=== PATIENT | female | born 1925 | race Caucasian/White ===

== ENCOUNTER 2016-08-28 06:46 | Inpatient (IN) | payer MEDICARE ==
[2016-08-24 11:48] LABS: BASOPHILS 0.3 %; BASOPHILS ABSOLUTE 0.03 10/3/uL (0.0-0.16); EOSINOPHILS 0.6 %; EOSINOPHILS ABSOLUTE 0.05 10/3/uL (0.0-0.53); HEMATOCRIT 45.1 % (36.0-48.0); HEMOGLOBIN 15.6 g/dL (12.0-16.0); IMMATURE GRANULOCYTES 0.2 %; IMMATURE GRANULOCYTES ABSOLUTE 0.02 10/3/uL (0.0-0.11); LYMPHOCYTES 22.3 %; LYMPHOCYTES ABSOLUTE 1.99 10/3/uL (0.67-4.30); MEAN CORPUS HGB CONC 34.6 g/dL (32.0-36.0); MEAN CORPUSCULAR HEMOGLOB 31.3 pg (26.0-34.0); MEAN CORPUSCULAR VOLUME 90.6 fL (80-100); MEAN PLATELET VOLUME 11.2 fL (9.2-13.0); MONOCYTES 9.4 %; MONOCYTES ABSOLUTE 0.84 10/3/uL (0.21-1.20); NEUTROPHILS 67.2 %; PLATELET COUNT 196 10/3/uL (150-400); RBC DISTRIBUTION WIDTH 14.3 % (12.0-16.0); RED CELL COUNT 4.98 10/6/uL (4.0-5.6); WHITE BLOOD CELLS 8.9 10/3/uL (4.5-10.5)
[2016-08-24 11:50] LABS: MANUAL DIFF NO %
[2016-08-24 11:54] LABS: INTERNATIONAL NORMAL RATI 1.6 UNITS (-)
[2016-08-24 11:55] LABS: PROTIME (NOT ORD) 18.5 SEC (12.0-14.5)
[2016-08-24 12:04] LABS: A/G RATIO 1.2 (0.7-1.9); ALBUMIN 4.2 G/DL (3.5-5.0); ALKALINE PHOSPHATASE 87 U/L (45-117); ASCORBIC ACID (UR NOT ORDER) 40 (NEG); BILIRUBIN, URINE NEGATIVE (NEG); BUN (BLOOD UREA NITROGEN) 16 MG/DL (6-23); CALCIUM, SERUM 9.7 MG/DL (8.5-10.4); CHLORIDE, SERUM 106 MMOL/L (96-112); CO2 (CARBON DIOXIDE) 30 MMOL/L (24-34); CREATININE 0.95 MG/DL (0.55-1.02); GFR AFRICAN AMERICAN 62 ML/MIN (>=60); GFR NON AFRICAN AMERICAN 53 ML/MIN (>=60); GLOBULIN 3.5 G/DL (2.5-4.1); GLUCOSE, SERUM 105 MG/DL (60-99); KETONE, URINE NEGATIVE (NEG); LEUKOCYTE ESTERASE(NOT OR MOD (NEG); POTASSIUM, SERUM 4.6 MMOL/L (3.5-5.3); SGOT(AST) 32 U/L (5-40); SGPT(ALT) 22 U/L (5-65); SODIUM, SERUM 143 MMOL/L (135-148); TOTAL BILIRUBIN 0.5 MG/DL (0-1.2); TOTAL PROTEIN 7.7 G/DL (6.0-8.5); WBC (NOT ORDERED) (RFLEX) 12 (0-5)
[2016-08-24 14:52] LABS: GLYCOHEMOGLOBIN (HbA1c) 5.7 % (4.7-6.1)
--- NOTE | ~2016-08-28 | OP ---
Record Of Operation [facility] [address] [place]. [address] NAME: PATRICK LUIS : [birth year] STATUS : ADM IN PAT#: [id number] AGE: 89 ADM/REG DATE : 08/28/16 MR#: [id number] REPORT SERV DATE: 08/28/16 DICTATED BY: ALFIE CHATTERJEE DATE: 08/28/16 REPORT STATUS : Draft TRANSCRIBED BY: JOSIANE DATE: 08/28/16 DATE OF PROCEDURE: 08/28/2016 PREOPERATIVE DIAGNOSES: 1. Aortic valve stenosis with insufficiency. 2. Paroxysmal atrial fibrillation. 3. Acute on chronic diastolic congestive heart failure. 4. Hypertension. 5. Hypothyroidism. 6. History of Meniere disease. PROCEDURES PERFORMED: 1. Right transfemoral and transarterial aortic valve replacement using a 26 mm Francisco III pericardial valve, Hills. 2. Placement of left transfemoral venous pacemaker wire, temporary. 3. Ascending aortography. 4. ProGlide closure of the right femoral arteriotomy x2, left femoral arteriotomy x1. 5. Aortogram with right iliofemoral runoff. SURGEONS: 1. Alfie Chatterjee M.D. 2. Ceferino Palomo M.D. 3. Michael Napoles M.D. 4. Dr. Cuevas. LEARNING OPERATIONS SPECIALIST: Vu Cervantes M.D., Ph.D, F.A.C.C. REFERRING LEARNING OPERATIONS SPECIALIST: Corey Bell M.D. INDICATIONS: This is an 89-year-old female who has a history of aortic valve stenosis, who located in the [facility] in the last couple of years. She has had progressive valve stenosis during this time and recent valve area was estimated at 0.61 cm2 with a peak gradient of 57 mmHg. There was also felt to be moderate aortic insufficiency and mild mitral insufficiency. Ventricular function systolically was preserved with an ejection fraction of 55% to 60%. Recent cardiac catheterization demonstrated only 25% LAD lesion with confirming findings for aortic valve stenosis with insufficiency. The patient was referred to the [facility] for discussion of possible transarterial aortic valve replacement versus surgical aortic valve replacement. Predicted SDS risk of mortality with surgical aortic valve apparatus was 7.1%, which is felt to be of at least moderate risk. Possible TAVR procedure was offered to the patient and her family. After discussing the operation, its indication and risks, they wished to proceed. FINDINGS AT OPERATION: 1. The total time of rapid atrial pacing was 14 seconds. 2. Actual time of deployment was 1200. 3. Pre-deployment cardiac output 2.5, post-deployment cardiac output 3.7 L/minute. Record Of Operation [facility] [address] [place]. [address] NAME: PATRICK LUIS : [birth year] STATUS : ADM IN PAT#: [id number] AGE: 89 ADM/REG DATE : 08/28/16 MR#: [id number] REPORT SERV DATE: 08/28/16 DICTATED BY: ALFIE CHATTERJEE DATE: 08/28/16 REPORT STATUS : Draft TRANSCRIBED BY: JOSIANE DATE: 08/28/16 4. Pre-deployment valve area of 0.29, post-deployment valve area 2.32 cm2. 5. Pre-deployment aortic pressures: Systolic 134, diastolic 60, mean 90 mmHg. Post- deployment aortic pressures: Systolic 171, diastolic 74, mean 110 mmHg. 6. The preimplant AV gradient of 70 mean and peak of 50 mmHg. Postimplant AV gradient mean 4 and peak 5 mmHg. 7. Total contrast volume used was 110 mL. 8. Fluoro time 15 minutes. 9. Estimated blood loss less than 50 mL. 10.Total mGy used was 1187. 11.Aortic insufficiency index was 37. DESCRIPTION OF PROCEDURE: The patient was brought to the operating suite and laid in the supine position. Lines secured by Anesthesia. MAC sedation with monitored anesthesia care was provided. The patient's abdomen and groins were prepped with Hibiclens and ChloraPrep and draped with Ioban sterile sheets. Right transfemoral placement of the valve was selected preprocedure. Next, micro needles were placed in the right and left femoral artery and confirmatory angiography performed with microcatheter. Then, 6-Bahamian introducers were placed in both vessels. Left femoral venous access was obtained and a 6-Bahamian introducer placed into the left femoral vein. Then, temporary transvenous pacemaking catheter was advanced into the left femoral vein and under fluoroscopic guidance advanced into the right ventricle. Confirmatory pacing thresholds were obtained and indicated that the lead was in good position. This was secured to the skin. Then, exchange wire advanced up to the left femoral arteriotomy sheath and into the ascending aorta. Pigtail catheter was then advanced over this wire and placed into the nik of the right and noncoronary cusps and angiography performed to confirm deployment angle. Then, exchange wire placed in the right 6-Bahamian sheath and the sheath removed. Two ProGlide catheters were then placed. Exchange wire was then advanced into the ascending aorta and exchange catheter was placed. Then, a Lunderquist wire was advanced over the exchange catheter into the ascending aorta. The catheter was removed and then the Hills sheath and introducer were advanced into the right femoral artery under fluoroscopic guidance. We positioned the sheath into the descending thoracic aorta. Then, the Lunderquist wire was removed over an AL1 catheter and straight wire advanced into the AL1 catheter, and this was used to cross the aortic valve. Then, a pigtail catheter was advanced over the ventricular wire. An exchange wire was then placed over this catheter and a Malakoff catheter advanced over the exchange wire across the valve into the left ventricle. Simultaneous pressure measurements were then made. Then, the extra stiff wire was advanced through the Malakoff catheter into the left ventricle with the cath. The catheter was then removed. Then, the valve delivery system was brought up to the field. The valve delivery system was advanced over the extra stiff wire through the right femoral arterial sheath into the descending thoracic aorta. The deployment balloon was then backed down on to the deployment system across the valve. Distal system was then advanced around Record Of Operation [facility] [id number] [facility] [place]. [address] NAME: PATRICK LUIS : [birth year] STATUS : ADM IN [facility]#: [id number] AGE: 89 ADM/REG DATE : 08/28/16 MR#: [id number] REPORT SERV DATE: 08/28/16 DICTATED BY: ALFIE CHATTERJEE DATE: 08/28/16 REPORT STATUS : Draft TRANSCRIBED BY: MODL DATE: 08/28/16 the arch of the aorta into the ascending aorta and across the valve and over the extra stiff wire. Then, the valve was positioned and confirmatory aortography performed. Rapid atrial pacing was begun and confirmatory aortography validated position of the valve. The valve was then deployed without incident. Once the valve was appropriately deployed, pacing was discontinued and backup pacing performed. The valve delivery system was then backed out into the descending thoracic aorta. Transthoracic echocardiography was then carried out demonstrating no significant aortic insufficiency and good ventricular function. Then, the valve delivery system was brought back through the sheath on the right side. An exchange wire was then placed into the right ventricle and the Clay catheter placed across the newly deployed transcatheter valve into the left ventricle and simultaneous pressure measurements were made. Malakoff catheter was removed over an exchange wire. We then removed the right femoral sheath over the exchange wire. The ProGlide closure systems were deployed x2 on the right. There was good hemostasis. The pigtail catheter was then backed down to the bifurcation of the aorta and right iliofemoral angiography performed. This demonstrated patent right femoral vessel with some element of vascular disease or stenosis from the ProGlide closures. We then measured pedal pulses using Doppler and these were present bilaterally. We were satisfied that the patient had adequate peripheral circulation on the right leg. At this point, an exchange wire was placed through the pigtail catheter and the pigtail catheter removed from the left femoral artery. The left femoral sheath was then removed and a ProGlide closure placed over the wire and positioned in the left femoral artery and deployed. The transfemoral venous pacemaker and sheath were left in place. The patient tolerated the procedure well. There were no complications. Sponge and needle counts were correct. DISPOSITION: She was taken to the intensive care unit in stable and extubated condition. Pedal pulses were present by Doppler bilaterally. MANSOOR/JOSIANE Alfie Chatterjee M.D. / [id number] CC: Yohana Koenig M.D. Van Stephen Monroe Jr., M.D.
--- NOTE | ~2016-08-28 | OP ---
Record Of Operation [facility] [address] [place]. [address] NAME: HAZEL RENTERIA : [birth year] STATUS : ADM IN PAT#: [id number] AGE: 89 ADM/REG DATE : 08/28/16 MR#: [id number] REPORT SERV DATE: 08/28/16 DICTATED BY: GIUSEPPE PALOMO DATE: 08/28/16 REPORT STATUS : Draft TRANSCRIBED BY: JOSIANE DATE: 08/28/16 DATE OF PROCEDURE: TAVR Note PROCEDURE: Right transfemoral transcatheter aortic valve implantation using 26 mm Hills S3 valve. INDICATION FOR PROCEDURE: Ms. Hazel Renteria is an 89-year-old woman with severe aortic stenosis. Echocardiogram demonstrated severe aortic stenosis with a valve area of 0.6, mean gradient 39, peak gradient 57. Catheterization demonstrated nonobstructive coronary disease. The peak gradient at catheterization was 61, mean gradient 62 with a valve area of 0.5. She also has a history of hypertension, atrial fibrillation, hyperlipidemia, degenerative joint disease, hypothyroidism, Meniere disease, and heart failure. She presents with class 2 heart failure. She was seen by both Dr. Chatterjee and Dr. Cuevas, who felt she was high risk for surgical aortic valve replacement. She was seen by the [facility] multi-disciplinary valve team who thought she was a good candidate for transcatheter aortic valve replacement. Her predicted mortality with the STS score is 7.1%, predicted morbidity mortality is 24.7%. Mortality by the EuroSCORE is 5.5%. POSTOPERATIVE DIAGNOSIS: Successful planned implantation of a 26 mm S3 valve via the right transfemoral approach. OPERATORS: 1. Amrit Chatterjee M.D. 2. Giuseppe Palomo M.D. 3. Michael Napoles M.D. 4. Cheo Cuevas M.D. OPERATIVE TECHNIQUE: The patient was prepped and draped in the usual sterile fashion. She received MAC anesthesia, propofol, she was not intubated. She did not have a Arango catheter. She did have a radial A-line as well as right heart catheter. The right and left groins were anesthetized with lidocaine 1%, 12 mL. Access was easily obtained using micropuncture technique for the right femoral artery, left femoral artery, and left femoral vein. 6-Indonesian sheaths were placed into all of three. The pacemaker was placed via the left femoral vein to allow rapid ventricular pacing. A pigtail catheter was placed through the left femoral artery sheath to allow valve positioning. Two ProGlide sutures were placed at the 10 o'clock and 2 o'clock position in the right femoral artery in the pre-close technique. We then placed a multipurpose wire through a J-wire into the ascending aorta, that was exchanged for a Lunderquist wire. We then placed the Hills sheath without difficulty. Record Of Operation [facility] [address] [facility] [place]. [address] NAME: HZAEL RENTERIA : [birth year] STATUS : ADM IN PAT#: [id number] AGE: 89 ADM/REG DATE : 08/28/16 MR#: [id number] REPORT SERV DATE: 08/28/16 DICTATED BY: GIUSEPPE PALOMO DATE: 08/28/16 REPORT STATUS : Draft TRANSCRIBED BY: JOSIANE DATE: 08/28/16 She received heparin IV, activating clotting time was therapeutic. We crossed the aortic valve without difficulty using AL1 and a straight wire. We then placed a pigtail J-wire in the left ventricle, we then measured the pressure gradient of the left ventricle and ascending aorta using a double lumen, Moore catheter. We then placed the Hills valve. The Hills valve was assembled in the thoracic and the descending aorta. We crossed the aortic valve without difficulty. With rapid ventricular pacing, the valve was deployed. Postprocedure, thoracic aortogram demonstrated no aortic insufficiency. The chest wall echocardiogram interpreted by Dr. Cervantes, demonstrated no aortic insufficiency. The Hills delivery system was removed. The sheath was then removed. The ProGlide sutures were tightened. Completion aortogram demonstrated no extravasation. There was a stenosis at the right femoral artery access site, she had a good Doppler pulse on the right dorsalis pedis. The feet were warm. The actual time of valve deployment is 12 noon. The total rapid pacing time was 14 seconds. The cardiac output pre deployment was 2.5 L/minute, post deployment 3.7 L/minutes. The valve area pre deployment was 0.29 cm, post deployment 2.3 cm2. The blood pressure pre deployment was 134/60, mean of 90, heart rate 67. Post deployment blood pressure was 171/74, mean 110, with heart rate 77. The gradient pre deployment was 70 mmHg mean, 50 mm peak. The mean gradient postprocedure was 4, peak gradient 3 mmHg. Total contrast volume used was 110 mL. Total fluoro time was 15 minutes. The blood loss was less than 50 mL. Total radiation dose of 1187 mGy. The AI index of 37. Again, there was no AI by chest wall echo or by thoracic aortogram. In short, the patient had a right transfemoral transcatheter aortic valve replacement using the Hills 26 mm S3 valve. The ProGlide sutures were used. The valve area increased from 0.3 to 2.3. The gradient decreased from 50 to 3. There was no AI by chest wall echo or by the thoracic aortogram. PLAN: The patient will be treated with aspirin, clopidogrel and warfarin, and she does have a history of atrial fibrillation. RIC/JOSIANE Record Of [address] [address] NAME: HAZEL RENTERIA : [birth year] STATUS : ADM IN PAT#: [id number] AGE: 89 ADM/REG DATE : 08/28/16 MR#: [id number] REPORT SERV DATE: 08/28/16 DICTATED BY: GIUSEPPE PALOMO DATE: 08/28/16 REPORT STATUS : Draft TRANSCRIBED BY: JOSIANE DATE: 08/28/16 Giuseppe Palomo M.D. / [id number] CC: Yohana Koenig M.D.
[~2016-08-28 06:46] MED LIST: DILT-XR240 MG PO; HYDROCHLOROT12.5 MG PO; JANTOVEN2.5 MG PO; JANTOVEN5 MG PO; MCZ25 PO; MULTIPLE VIT PO; PRAVACHOL80 MG PO; SYN1 PO; VITAMIN D31000 UNIT PO
[2016-08-28 07:49] LABS: INTERNATIONAL NORMAL RATI 1.1 UNITS (-); PROTIME (NOT ORD) 14.1 SEC (12.0-14.5)
[2016-08-28 13:41] LABS: PLATELET COUNT 190 10/3/uL (150-400)
[2016-08-28 13:42] LABS: HEMATOCRIT 36.8 % (36.0-48.0); HEMOGLOBIN 12.3 g/dL (12.0-16.0)
[2016-08-28 13:50] LABS: BUN (BLOOD UREA NITROGEN) 14 MG/DL (6-23); CALCIUM, SERUM 8.7 MG/DL (8.5-10.4); CHLORIDE, SERUM 107 MMOL/L (96-112); CO2 (CARBON DIOXIDE) 25 MMOL/L (24-34); CREATININE 0.89 MG/DL (0.55-1.02); GFR AFRICAN AMERICAN 67 ML/MIN (>=60); GFR NON AFRICAN AMERICAN 57 ML/MIN (>=60); GLUCOSE, SERUM 94 MG/DL (60-99); POTASSIUM, SERUM 3.4 MMOL/L (3.5-5.3); SODIUM, SERUM 142 MMOL/L (135-148)
[2016-08-28 13:54] LABS: INTERNATIONAL NORMAL RATI 1.5 UNITS (-)
[2016-08-28 14:05] LABS: PARTIAL THROMBO TIME > 150.0 SEC (22.5-37.2); PROTIME (NOT ORD) 17.8 SEC (12.0-14.5)
[2016-08-28 18:58] LABS: HEMATOCRIT 36.6 % (36.0-48.0); HEMOGLOBIN 12.3 g/dL (12.0-16.0)
[2016-08-28 19:11] LABS: BUN (BLOOD UREA NITROGEN) 12 MG/DL (6-23); CALCIUM, SERUM 8.6 MG/DL (8.5-10.4); CHLORIDE, SERUM 109 MMOL/L (96-112); CO2 (CARBON DIOXIDE) 25 MMOL/L (24-34); CREATININE 0.85 MG/DL (0.55-1.02); GFR AFRICAN AMERICAN 70 ML/MIN (>=60); GFR NON AFRICAN AMERICAN 61 ML/MIN (>=60); SODIUM, SERUM 142 MMOL/L (135-148)
[2016-08-28 19:16] LABS: GLUCOSE, SERUM 122 MG/DL (60-99); POTASSIUM, SERUM 4.5 MMOL/L (3.5-5.3)
[2016-08-29 03:50] LABS: BASOPHILS 0.2 %; BASOPHILS ABSOLUTE 0.02 10/3/uL (0.0-0.16); EOSINOPHILS 0.5 %; EOSINOPHILS ABSOLUTE 0.04 10/3/uL (0.0-0.53); HEMATOCRIT 34.6 % (36.0-48.0); HEMOGLOBIN 11.6 g/dL (12.0-16.0); IMMATURE GRANULOCYTES 0.2 %; IMMATURE GRANULOCYTES ABSOLUTE 0.02 10/3/uL (0.0-0.11); LYMPHOCYTES 13.5 %; LYMPHOCYTES ABSOLUTE 1.12 10/3/uL (0.67-4.30); MEAN CORPUS HGB CONC 33.5 g/dL (32.0-36.0); MEAN CORPUSCULAR HEMOGLOB 30.4 pg (26.0-34.0); MEAN CORPUSCULAR VOLUME 90.6 fL (80-100); MONOCYTES 11.7 %; MONOCYTES ABSOLUTE 0.97 10/3/uL (0.21-1.20); NEUTROPHILS 73.9 %; NEUTROPHILS ABSOLUTE 6.11 10/3/uL (2.02-8.40); PLATELET COUNT 154 10/3/uL (150-400); WHITE BLOOD CELLS 8.3 10/3/uL (4.5-10.5)
[2016-08-29 03:51] LABS: MANUAL DIFF NO %; RED CELL COUNT 3.82 10/6/uL (4.0-5.6)
[2016-08-29 04:42] LABS: BUN (BLOOD UREA NITROGEN) 11 MG/DL (6-23); CALCIUM, SERUM 8.3 MG/DL (8.5-10.4); CHLORIDE, SERUM 108 MMOL/L (96-112); CO2 (CARBON DIOXIDE) 26 MMOL/L (24-34); CREATININE 0.78 MG/DL (0.55-1.02); GFR AFRICAN AMERICAN 78 ML/MIN (>=60); GFR NON AFRICAN AMERICAN 67 ML/MIN (>=60); GLUCOSE, SERUM 106 MG/DL (60-99); POTASSIUM, SERUM 3.8 MMOL/L (3.5-5.3); SODIUM, SERUM 142 MMOL/L (135-148)
[2016-08-29] MEDS ORDERED: PLAVIX PO (14:23)
[2016-08-29] MEDS ORDERED: PROTONIX PO (14:26)
== END 2016-08-29 15:57 | disposition home or self-care (01) | DRG 266 ==
LOC: SDC/OF 06:46 → CVICU 12:18
PROVIDERS: Thoracic Surgery (Cardiothoracic Vascular Surgery)
PROC: 02RF38Z Replacement of Aortic Valve with Zooplastic Tissue, Percutaneous Approach (ICD-10-PCS; principal; 2016-08-28 10:30)
DX: I35.0 Nonrheumatic aortic (valve) stenosis (principal); I50.33 Acute on chronic diastolic (congestive) heart failure; Z00.6 Encounter for examination for normal comparison and control in clinical research program; I48.0 Paroxysmal atrial fibrillation; I10 Essential (primary) hypertension; E03.9 Hypothyroidism, unspecified; Z79.899 Other long term (current) drug therapy; E78.2 Mixed hyperlipidemia; M19.90 Unspecified osteoarthritis, unspecified site
CPT/HCPCS: 36415; 71010; 71020; 80048; 80053; 81001; 82330; 82803; 82947; 82962; 83036; 83735; 83880; 84132; 84295; 85014; 85018; 85025; 85049; 85347; 85610; 85730; 86850; 86870; 86900; 86901; 86902; 86920; 86922; 87086; 87641; 93005; 93306; 93312; 93320; 93325; A9270-GY; C1769; J0690; J2250; J2370; J2405; J3010